=== PATIENT | female | born 1950 | race Caucasian/White ===

== ENCOUNTER → 2024-06-09 | Outpatient (CLI) | payer MEDICARE, BC, SELFPAY ==
--- NOTE | 2024-06-09 09:15 | XR_ITS ---
Examination: Screening digital mammography, bilateral Computer aided detection 3-D breast Tomosynthesis, bilateral Date and time of exam: June 09, 2024 0918 hours Compared to mammograms dating to October 15, 2019 Indication: Screening Technique: Nonmagnified MLO, CC views of the breasts to been obtained, reconstructed from 3-D Tomosynthesis images. R2 computer aided detection program utilized for evaluation of suspicious masses and/or abnormal calcifications. 3-D Tomosynthesis images obtained. Findings: Scattered areas of fibroglandular density 2 mm circumscribed asymmetry inner left breast CC view, posterior depth Benign calcifications Impression: BI-RADS Category 0: Incomplete: Need additional imaging evaluation 2 mm circumscribed focal asymmetry inner left breast CC view, recommend follow-up spot compression views inner upper quadrant left breast posterior depth left breast sonography to complete the workup
== END | disposition home or self-care (01) ==
LOC: CDIM 09:12
PROVIDERS: Referring Provider Nurse Practitioner Family; Visit Provider Nurse Practitioner Family
DX: Z12.31 Encounter for screening mammogram for malignant neoplasm of breast (principal); R92.8 Other abnormal and inconclusive findings on diagnostic imaging of breast
CPT/HCPCS: 77063; 77067

== ENCOUNTER → 2024-07-26 | Outpatient (CLI) | payer MEDICARE, BC, SELFPAY ==
--- NOTE | 2024-07-26 09:47 | XR_ITS ---
Examination: Breast ultrasound, unilateral, left complete Date and time of exam: July 26, 2024 1002 hours INDICATIONS: Mammogram June 09, 2024 2 mm circumscribed focal asymmetry inner left breast CC view Technique: Real-time mcintosh scale ultrasonographic imaging performed left breast including all 4 quadrants as well as nipple retroareolar and axillary region. Findings: No cystic or solid mass IMPRESSION: BI-RADS Category 1: Negative study
== END | disposition home or self-care (01) ==
PROVIDERS: PCP Obstetrics & Gynecology; Referring Provider Internal Medicine; Visit Provider Internal Medicine
DX: N64.89 Other specified disorders of breast (principal)
CPT/HCPCS: 76641

== ENCOUNTER → 2024-07-27 | Outpatient (CLI) | payer MEDICARE, BC, SELFPAY ==
--- NOTE | 2024-07-27 11:30 | XR_ITS ---
Examination: Diagnostic digital mammography, unilateral, left Computer aided detection 3-D breast Tomosynthesis, unilateral Date and time of exam: July 27, 2024 1137 hours INDICATIONS: Mammogram June 09, 2024 2 mm focal asymmetry inner left breast on the CC view Technique: Nonmagnified MLO, CC views of the left breast have been obtained, reconstructed from 3-D Tomosynthesis images. R2 computer aided detection program utilized for evaluation of suspicious masses and/or abnormal calcifications. 3-D Tomosynthesis images obtained. Findings: Scattered areas of fibroglandular density No suspicious mass is depicted on the spot compression views Impression: BI-RADS category 2: Benign findings Return to yearly follow-up mammography
== END | disposition home or self-care (01) ==
LOC: CDIM 11:28
PROVIDERS: Referring Provider Internal Medicine; Visit Provider Internal Medicine
DX: R92.322 Mammographic fibroglandular density, left breast (principal)
CPT/HCPCS: 77061; 77065; G0279

== ENCOUNTER → 2024-10-13 | Outpatient (CLI) | payer MEDICARE, BC, SELFPAY ==
--- NOTE | 2024-10-13 | XR_ITS ---
Examination: Duplex scan of the lower extremity, unilateral right complete Date and time of exam: October 13, 2024 1130 hrs. Indications: Right calf pain beginning 2 weeks ago Technique: Duplex scan of the extremity veins using B-mode/grayscale imaging and Doppler spectral analysis and color flow Attention is directed to internal echogenicity, compression and augmentation involving these veins, color flow assessment, spectral analysis Findings: Major deep venous structures in the extremity demonstrate normal course and caliber. There is no evidence of deep vein thrombosis. Normal color flow and spectral analysis Impression: Negative for DVT..
== END | disposition home or self-care (01) ==
PROVIDERS: PCP Internal Medicine; Referring Provider Internal Medicine; Visit Provider Internal Medicine
DX: M79.609 Pain in unspecified limb (principal)
CPT/HCPCS: 93971

== ENCOUNTER → 2025-04-14 | Outpatient (CLI) | payer MEDICARE, BC, SELFPAY ==
--- NOTE | 2025-04-14 13:45 | XR_ITS ---
Examination: Diagnostic digital mammography, unilateral, left Computer aided detection 3-D breast Tomosynthesis, unilateral Date and time of exam: April 14, 2025, 1339 hours, compared to mammograms dating to June 09, 2024 INDICATIONS: Patient states left breast pain beginning 2 months ago Technique: Nonmagnified MLO, CC views of the left breast have been obtained, reconstructed from 3-D Tomosynthesis images. R2 computer aided detection program utilized for evaluation of suspicious masses and/or abnormal calcifications. 3-D Tomosynthesis images obtained. Findings: Scattered areas of fibroglandular density. No suspicious masses depicted Impression: BI-RADS category 0: Incomplete: Need additional imaging evaluation Given the patient's presentation recommend repeat left breast sonography follow-up
== END | disposition home or self-care (01) ==
LOC: CDIM 13:19
PROVIDERS: Referring Provider Internal Medicine; Visit Provider Internal Medicine
DX: R92.8 Other abnormal and inconclusive findings on diagnostic imaging of breast (principal)
CPT/HCPCS: 77061; 77065; G0279

== ENCOUNTER 2025-06-07 06:40 | Day surgery (SDC) | payer MEDICARE, BC, SELFPAY ==
[2025-06-01 16:17] VITALS: BMI 23.0
--- NOTE | 2025-06-06 09:41 | EKG_ITS ---
[facility] Test Date: 2025-06-06 Pat Name: ADDISON EARLY Department: Room: - Gender: Female [employer] Installer: CONRADO : 1950 Requested By: Storm Baer Order Number: [id number] Reading MD: Storm Baer Measurements Intervals [place] Rate: 77 P: 62 DC: 177 QRS: 267 QRSD: 101 T: 60 QT: 382 QTc: 433 Interpretive Statements SINUS RHYTHM PATTERN CONSISTENT WITH PULMONARY DISEASE RIGHT VENTRICULAR HYPERTROPHY [SOME/ALL OF: PROMINENT R IN V1, LATE TRANSITION, RAD, KARTIK, SSS] Compared to ECG 07/02/2018 07:46:00 Atrial abnormality now present Right ventricular hypertrophy now present Left anterior fascicular block no longer present /store/S0/[id number].pdf
[2025-06-06 11:06] LABS: COVID-19 Antigen (In-House) Negative (Negative)
[2025-06-06 11:14] LABS: INR 1.0 (0.9-1.3); Partial Thromboplastin Time 28.4 Seconds (22.0-36.0); Prothrombin Time 10.3 Seconds (9.0-12.2)
[2025-06-06 11:15] LABS: Anion Gap 10 (7-16); BUN/Creatinine Ratio 15 Ratio (12-20); Blood Urea Nitrogen 15 mg/dL (9-23); Calcium 9.1 mg/dL (8.3-10.6); Carbon Dioxide 25.4 mMol/L (20.0-31.0); Chloride 108 mMol/L (98-107); Creatinine (Component) 1.0 mg/dL (0.6-1.3); Estimated Creatinine Clearance 40.2 mL/min (>60); Glucose 92 mg/dL (74-106); Osmolality,Calculated 285 (275-295); Potassium 3.9 mMol/L (3.4-5.1); Sodium 143 mMol/L (136-145); eGFR 59 See Note
[2025-06-06 11:23] LABS: Basophils # (Auto) 0.1 Thou/mm3 (0.0-0.2); Basophils % (Auto) 1 % (0-2.5); Eosinophils # (Auto) 0.1 Thou/mm3 (0.0-0.5); Eosinophils % (Auto) 2 % (0-10); Hematocrit 35.7 % (36.0-46.0); Hemoglobin 11.4 g/dL (12.0-16.0); Immature Granulocytes Auto 0.01 Thou/mm3 (0.00-0.00); Lymphocytes # (Auto) 1.4 Thou/mm3 (1.0-4.8); Lymphocytes % (Auto) 26 % (10-50); Mean Corpuscular HGB Conc 31.9 g/dl (31.0-37.0); Mean Corpuscular Hemoglobin 29.0 pg (25.0-35.0); Mean Corpuscular Volume 91 fL (80-100); Monocytes # (Auto) 0.4 Thou/mm3 (0.0-0.8); Monocytes % (Auto) 7 % (0-12); Neutrophils # (Auto) 3.5 Thou/mm3 (1.8-7.7); Neutrophils % (Auto) 64 % (37-80); Nucleated Red Blood Cell # 0.00 Thou/mm3 (0.00-0.00); Nucleated Red Blood Cell % 0 /100 WBC (0); Platelet Count 350 Thou/mm3 (140-440); RDW Standard Deviation 50.2 fL (36.4-46.3); Red Blood Count 3.93 Miln/mm3 (4.00-5.20); White Blood Count 5.4 Thou/mm3 (3.6-11.0)
[2025-06-07] VITALS (14 sets, daily range): BP systolic 120–154; BP diastolic 62–95; PULSE 80–95; RESP 13–20; TEMP 36.1–36.6; O2SAT 93–99
[2025-06-07] MEDS: DIAZEPAM 5 MG TABLET PO (07:25)
--- NOTE | 2025-06-07 08:18 | PD.CARDCATH ---
Cardiac Cath Procedure Procedure Narrative Date of the procedure 06/07/2025 Title of the procedure 1.left heart catheterization 2.left coronary angiogram 3.right coronary angiogram 4.left ventriculogram 5.conscious sedation 6.radiographic interpretation supervision 7.ultrasound guidance for right radial access Indication for the procedure This is a 74-year-old female with past medical history of hypertension hyperlipidemia Complains of atypical chest pain Cardiolite scan was equivocal Patient continues to complain atypical symptom Therefore we decided to proceed with cardiac catheter and coronary angiogram Procedure This was done in the cardiac lab under current electrocardiographic monitoring Intermittent blood pressure monitoring right radial access obtained using modified Seldinger technique and ultrasound guidance 6 [place] sheath was placed TIG 4 catheter was used for selective engagement of the left coronary artery TIG 4 catheter was used for selective images right coronary artery TIG 4 catheter used for left ventriculogram Hemodynamics Overall left ventricular systolic function appears normal Approximate ejection fraction 55% End-diastolic pressure was 18 mmHg There is no gradient across the aortic valve Coronary anatomy 1.left Main coronary artery appears normal 2.left anterior descending artery does not seem to have any significant lesion 3.diagonal appears to show luminal regularities 4.circumflex does not seem to have any significant lesion 5.right coronary is a dominant vessel no significant lesion 6.PDA shows luminal regularities Conclusion No significant coronary artery disease Continue medical management
--- NOTE | 2025-06-07 15:15 | PC.NURSE ---
0825 patient is awake, alert, breathing unlabored, s/p LHC by Dr. Baer, TR band present to right wrist, no bleeding or hematoma noted. Report received from Dyana MENDOZA, patient to recover for hrs. 0845 patient eating food tray 0915 patient done eating breakfast, no nausea or vomiting 09 2ml air removed from TR band since hemostasis time 08. 0925 report given to Kirti MENDOZA 0940 report received from Kirti MENDOZA 1020 TR band removed, no bleeding or hematoma noted, site covered with tegaderm and coban. 1025 patient ambulated to bathroom and voided 1127 patient is awake, alert, breathing unlabored, able to tolerate food tray with no nausea or vomiting, able to void 200ml via pure wic device, 200ml via bedpan and also ambulated to bathroom and voided. pt meets discharge criteria, discharge instructions given to patient and , patient discharged home in wheelchair with all belongings.
== END 2025-06-07 11:27 | disposition home or self-care (01) ==
PROVIDERS: PCP Internal Medicine; Referring Provider Internal Medicine; Visit Provider Internal Medicine
PROC: (CPT 93458; principal; 2025-06-07 07:30)
DX: R06.02 Shortness of breath (principal); M54.9 Dorsalgia, unspecified; I10 Essential (primary) hypertension; Z01.810 Encounter for preprocedural cardiovascular examination
CPT/HCPCS: 93458; 36415; 80048; 85025; 85610; 85730; 87811; 93005; 99152; A4649; C1769; C1887; C1894; J0168; J0461; J0583; J1643; J2250; J2312; J2371; J3010; J3490; Q9967; A9270; J2305

== ENCOUNTER → 2025-07-04 | Outpatient (CLI) | payer MEDICARE, BC, SELFPAY ==
--- NOTE | 2025-07-04 | XR_ITS ---
EXAMINATION: PA lateral chest 2 views TECHNIQUE: Upright PA lateral chest 2 views Date and time: July 04, 2025, 1305 hours, comparison July 02, 2018 INDICATIONS: Coughing shortness of breath today. 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
== END | disposition home or self-care (01) ==
PROVIDERS: PCP Obstetrics & Gynecology; Referring Provider Obstetrics & Gynecology; Visit Provider Obstetrics & Gynecology
DX: R05.9 Cough, unspecified (principal); R06.02 Shortness of breath
CPT/HCPCS: 71046